=== PATIENT | female | born 1995 | race African-American/Black ===

== ENCOUNTER 2020-04-24 16:52 | Emergency (ER) | payer MEDICAID ==
[~2020-04-24] VITALS: Ht 165.1 cm; Wt 75.0 kg
[2020-04-24] MEDS ORDERED: KETOROLAC 30MG/ML VIAL IM ONE (17:30)
[2020-04-24 17:48] VITALS: BP 132/78
== END 2020-04-24 17:49 | disposition home or self-care (01) ==
LOC: ER 16:52
DX: M79.18 Myalgia, other site (principal); R03.0 Elevated blood-pressure reading, without diagnosis of hypertension; V49.59XA Passenger injured in collision with other motor vehicles in traffic accident, initial encounter; Y93.89 Activity, other specified; Y92.410 Unspecified street and highway as the place of occurrence of the external cause
CPT/HCPCS: 96372; 99283; J1885